=== PATIENT | male | born 2000 | race Caucasian/White ===

== ENCOUNTER 2022-06-02 16:31 | Emergency (ER) | payer SELFPAY ==
[~2022-06-02] VITALS: Ht 188 cm; Wt 61.2 kg
[2022-06-02 18:00] VITALS: BP 149/70
[2022-06-02] MEDS ORDERED: TDAP [DIPH/PERTUSSIS/TET] 0.5 ML VIAL IM ONE ×2 (20:08→20:30)
== END 2022-06-02 20:55 | disposition home or self-care (01) ==
LOC: ER 16:31
DX: S61.213A Laceration without foreign body of left middle finger without damage to nail, initial encounter (principal); W26.0XXA Contact with knife, initial encounter; Y93.89 Activity, other specified; Y92.89 Other specified places as the place of occurrence of the external cause; Y99.0 Civilian activity done for income or pay
CPT/HCPCS: 90715